=== PATIENT | female | born 1960 | race African-American/Black ===

== ENCOUNTER 2019-05-27 14:32 | Emergency (ER) | payer OTHER ==
[~2019-05-27] VITALS: Ht 175.3 cm; Wt 93.9 kg
--- NOTE | 2019-05-27 14:43 | NUR ---
"c/o rlq pain radiating to right lower back and SOB since this morning" pt aaox4, pt on monitor, vss ,nad noted, pending md chaves
[2019-05-27] MEDS ORDERED: IV NS 0.9% 1,000 ML BAG IV ONE (15:00)
[2019-05-27 15:16] LABS: BASOPHILS # (AUTO) 0.1 /CMM (0.0-0.2); BASOPHILS % (AUTO) 0.9 % (0.0-2.0); EOSINOPHILS % (AUTO) 1.8 % (0.0-6.0); HEMATOCRIT 42 % (33-45); HEMOGLOBIN 13.7 g/dL (11.5-14.8); LYMPHOCYTES % (AUTO) 13.2 % (20.0-44.0); MEAN CORPUSCULAR HGB CONC 33 g/dl (31.0-36.0); MEAN CORPUSCULAR VOLUME 79 fL (82-100); MONOCYTES # (AUTO) 0.8 /CMM (0.1-1.30); MONOCYTES % (AUTO) 10.9 % (2.0-12.0); NEUTROPHILS # (AUTO) 5.6 /CMM (1.8-8.9); NEUTROPHILS % (AUTO) 73.2 % (43.0-81.0); PLATELET COUNT (AUTO) 334 /CMM (150-450); RED BLOOD CELL COUNT(AUTO) 5.29 MIL/uL (4.0-5.2); WHITE BLOOD COUNT (AUTO) 7.7 K/uL (4.3-11.0)
[2019-05-27 15:21] LABS: CALCIUM, SERUM 9.3 mg/dL (8.5-10.1); CARBON DIOXIDE 24 mmol/L (21-32); CHLORIDE 99 mmol/L (98-107); CREATININE 0.9 mg/dL (0.6-1.3); GLUCOSE 203 mg/dL (74-106); POTASSIUM 3.5 mmol/L (3.5-5.1); SODIUM SERUM 135 mmol/L (136-145); UREA NITROGEN, BLOOD 9 mg/dL (7-18)
[2019-05-27 15:30] LABS: ALANINE AMINOTRANSFERASE 20 U/L (12-78); ALBUMIN 3.3 g/dL (3.4-5.0); ALKALINE PHOSPHATASE 74 U/L (46-116); ASPARTATE AMINOTRANSFERASE 19 U/L (15-37); BILIRUBIN,DIRECT 0.1 mg/dL (0.0-0.2); BILIRUBIN,TOTAL 0.5 mg/dL (0.2-1.0); LIPASE 124 U/L (73-393); TOTAL PROTEIN, SERUM 7.7 g/dL (6.4-8.2)
[2019-05-27 15:57] LABS: APPEARANCE,URINE Clear (CLEAR); BILIRUBIN,URINE Negative (NEGATIVE); BLOOD, URINE Trace-intact Ery/uL (NEGATIVE); COLOR,URINE Yellow (YELLOW); KETONES,URINE 40 (NEGATIVE); LEUKOCYTE ESTERASE ,URINE Negative (NEGATIVE); NITRITE, URINE Negative (NEGATIVE); PROTEIN,URINE Negative (NEGATIVE); UGLUCOSE Negative (NEGATIVE)
[2019-05-27] MEDS ORDERED: IOHEXOL-350 100 ML VIAL IV ONE (15:57)
[2019-05-27 16:07] LABS: BACTERIA,URINE None seen /HPF (None Seen); SQUAMOUS EPITHELIAL CELL,UR None Seen /HPF (None Seen); WBC,URINE NONE SEEN /HPF (0-3)
[2019-05-27 16:11] VITALS: BP 161/83
--- NOTE | 2019-05-27 18:56 | NUR ---
Patient discharged to home in stable condition. Written and verbal after care instructions given. Patient verbalizes understanding of instruction.IV removed. Catheter intact and site benign. Pressure and 4x4 applied to site. No bleeding noted.
--- NOTE | 2019-05-27 19:03 | NUR ---
called dad for pickup, eta 1hr
== END 2019-05-27 19:43 | disposition home or self-care (01) ==
LOC: ER 14:37
DX: J18.9 Pneumonia, unspecified organism (principal); R00.0 Tachycardia, unspecified; Z60.2 Problems related to living alone
CPT/HCPCS: 36415; 71045; 71275; 74176; 80048; 80076; 81001; 83690; 84484; 85025; 85378; 93005; 99284; Q9967; 81000-TC

== ENCOUNTER 2019-05-30 09:59 | Emergency (ER) | payer OTHER ==
[~2019-05-30] VITALS: Ht 175.3 cm; Wt 90.7 kg
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
[2019-05-30] MEDS ORDERED: diphenhydrAMINE HCL 50 MG CAPSULE ONE (11:24)
[2019-05-30] MEDS ORDERED: FAMOTIDINE (20 MG) 20 MG TABLET ONE ×2 (11:25→11:31)
[2019-05-30] MEDS ORDERED: predniSONE 20 MG TABLET ONE (11:25)
[2019-05-30] MEDS ORDERED: predniSONE 10 MG TABLET PO ONE (11:30)
[2019-05-30] MEDS ORDERED: diphenhydrAMINE HCL 50 MG CAPSULE PO ONE (11:30)
[2019-05-30] MEDS ORDERED: FAMOTIDINE (20 MG) 20 MG TABLET PO ONE (11:30)
[2019-05-30 11:48] VITALS: BP 128/71
--- NOTE | 2019-05-30 11:48 | NUR ---
Patient discharged to home in stable condition. Written and verbal after care instructions given. Patient verbalizes understanding of instruction.
== END 2019-05-30 11:49 | disposition home or self-care (01) ==
LOC: ER 10:00
DX: T36.8X5A Adverse effect of other systemic antibiotics, initial encounter (principal); Z60.2 Problems related to living alone; Y92.89 Other specified places as the place of occurrence of the external cause
CPT/HCPCS: 99284; J7512; Q0163

== ENCOUNTER 2019-06-12 14:36 | Emergency (ER) | payer OTHER ==
[~2019-06-12] VITALS: Ht 175.3 cm; Wt 90.7 kg
[2019-06-12 15:01] VITALS: BP 147/93
== END 2019-06-12 15:48 | disposition home or self-care (01) ==
LOC: ER 14:36
DX: T36.8X5A Adverse effect of other systemic antibiotics, initial encounter (principal); Z60.2 Problems related to living alone; Y92.89 Other specified places as the place of occurrence of the external cause